=== PATIENT | male | born 1965 | race Caucasian/White ===

== ENCOUNTER 2018-12-18 12:32 | Emergency (ER) | payer OTHER, SELFPAY ==
[2018-12-18 12:27] VITALS: BP 141/86; RESP 47; O2SAT 99
--- NOTE | 2018-12-18 12:36 | DI.RAD_ITS ---
SYMPTOMS/DIAGNOSIS: TRAUMA, MID TO DISTAL CLAVICLE DEFORMITY LEFT CLAVICLE: Two views. There is a comminuted fracture at the junction of the middle and distal thirds of the left clavicle. There is overriding of the fracture. There is displacement of the medial fracture component one shafts width superiorly. The acromioclavicular joint appears to be intact. There is adjacent soft tissue swelling. IMPRESSION: Comminuted distal left clavicular fracture.
[2018-12-18] MEDS: Ibuprofen 600 MG TAB (12:51)
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
[2018-12-18 13:55] VITALS: BP 145/79; PULSE 52; RESP 18; O2SAT 100
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
[2018-12-18 15:08] VITALS: BP 132/77; PULSE 56; RESP 17; O2SAT 100
== END 2018-12-18 15:20 | disposition home or self-care (01) ==
PROVIDERS: Emergency Provider Nurse Practitioner Family
DX: S42.032A Displaced fracture of lateral end of left clavicle, initial encounter for closed fracture (principal); S80.812A Abrasion, left lower leg, initial encounter; V18.0XXA Pedal cycle driver injured in noncollision transport accident in nontraffic accident, initial encounter; Y93.55 Activity, bike riding
CPT/HCPCS: 23500; 90471; 99284; 73000; 99281